=== PATIENT | male | born 1960 | race Caucasian/White ===

== ENCOUNTER 2022-05-10 15:20 | Observation (INO) | payer MEDICARE, SELFPAY ==
[2022-05-10 15:21] VITALS: BP 130/77; PULSE 78; RESP 14; TEMP 36.3; O2SAT 99; BMI 24.3
--- NOTE | 2022-05-10 15:31 | NURSING ---
NO OLD EKGS
--- NOTE | 2022-05-10 16:11 | EKG12_ITS ---
Test Reason : CP Blood Pressure : / mmHG Vent. Rate : 080 BPM Atrial Rate : 080 BPM P-R Int : 140 ms QRS Dur : 118 ms QT Int : 420 ms P-R-T Axes : 064 -53 025 degrees QTc Int : 484 ms Normal sinus rhythm Left axis deviation Non-specific intra-ventricular conduction delay Minimal voltage criteria for LVH, may be normal variant ( Rodri product ) Prolonged QT Abnormal ECG Confirmed by DOROTHEA RIZZO, BILLY ([id number]), editor sound FLOR ERVIN ([id number]) on 05/13/2022 11:39:05 AM Referred By: LUCIO Confirmed By:BILLY PIEDRA MD
--- NOTE | 2022-05-10 16:15 | RAD_ITS ---
STUDY: X-RAY CHEST REASON FOR EXAM: Male, 62 years old. Chest pain beginning today. History of CO. TECHNIQUE: Single AP portable view of the chest. COMPARISON: None. FINDINGS: The lungs are clear and expanded. There is no demonstrated pleural abnormality. Normal size heart. Normal mediastinum and reena. Normal visualized pulmonary arteries. Normal visualized aortic arch and descending thoracic aorta. Normal visualized thoracic spine. Evidence of anterior fusion of the cervical spine. Normal visualized ribs, clavicles, and shoulders. There is no demonstrated abnormality of the visualized soft tissue structures of the upper abdomen. RAD/Chest 1 View (Portable) IMPRESSION: No acute cardiopulmonary disease. Electronically Signed: Patrick Jamil DO at 16:30 EDT ,
--- NOTE | 2022-05-10 16:16 | EDS_ITS ---
HPI History of Present Illness Chief Complaint: Chest Pain Informant: patient Narrative Narrative: 62-year-old male with a previous medical history of coronary artery disease presented to the emergency room with intermittent chest pain for the past 2 hours. The patient states that he has 15 stents in his heart. His last heart catheterization was in July but nothing needed to be intervened upon. He is currently riding his bike from [place] to [facility]. He states that today he developed a central chest pain that is coming and going and reminded him of the pain that he feels with his angina. No recent changes in medications. There is a familial history of early coronary artery disease. He is also a diabetic. [facility] Medical History (Updated 05/10/22 @ 19:[address] Will Tran, ) Coronary artery disease Diabetes HLD (hyperlipidemia) Hypertension Myocardial infarct Home Medications Humalog Pen 05/10/22 [History Last Taken Unknown] amlodipine 10 mg tablet 10 mg PO QHS 05/10/22 [History Last Taken Unknown] aspirin 81 mg capsule 81 mg PO DAILY 05/10/22 [History Last Taken Unknown] bupropion HCl 300 mg 24 hr tablet, extended release 300 mg PO DAILY 05/10/22 [History Last Taken Unknown] clopidogrel 75 mg tablet 75 mg PO QHS 05/10/22 [History Last Taken Unknown] diphenhydramine HCl 25 mg capsule (Benadryl) 75 mg PO QHS 05/10/22 [History Last Taken Unknown] duloxetine 60 mg capsule,delayed release 60 mg PO DAILY 05/10/22 [History Last Taken Unknown] empagliflozin 10 mg tablet (Jardiance) 10 mg PO DAILY 05/10/22 [History Last Taken Unknown] evolocumab 140 mg/mL subcutaneous syringe (Repatha Syringe) 420 mg subcut QMONTH 05/10/22 [History Last Taken Unknown] ezetimibe 10 mg tablet 10 mg PO DAILY 05/10/22 [History Last Taken Unknown] fluticasone propionate 50 mcg/actuation nasal spray,suspension 1 spray intranasal BID 05/10/22 [History Last Taken Unknown] insulin degludec 100 unit/mL subcutaneous solution (Tresiba U-100 Insulin) 35 unit subcut QHS 05/10/22 [History Last Taken Unknown] isosorbide dinitrate 40 mg tablet 40 mg PO TID 05/10/22 [History Last Taken Unknown] metformin 500 mg tablet 500 mg PO BID 05/10/22 [History Last Taken Unknown] metoprolol tartrate 50 mg tablet 50 mg PO QHS 05/10/22 [History Last Taken Unknown] ranolazine 1,000 mg tablet,extended release,12 hr 1,000 mg PO BID 05/10/22 [History Last Taken Unknown] rosuvastatin 40 mg tablet 40 mg PO QHS 05/10/22 [History Last Taken Unknown] tizanidine 4 mg tablet 4 mg PO QHS 05/10/22 [History Last Taken Unknown] trazodone 100 mg tablet 200 mg PO QHS 05/10/22 [History Last Taken Unknown] Allergy/AdvReac Type Severity Reaction Status Date / Time ketorolac [From Toradol] Allergy Hives Verified 05/10/22 16:03 Surgical History (Updated 05/10/22 @ 18:[address] Jessica Nieto MD) History of coronary artery stent placement Social History Smoking Status: Never smoker ROS ROS ED Constitutional Constitutional ED: Denies chills or weight loss Eyes Eyes: Denies change in vision or diplopia ENT ENT ED: Denies ear pain, rhinorrhea or sore throat Cardiovascular Cardiovascular: Reports chest pain; Denies orthopnea, palpitations or racing heartbeat Respiratory/Chest Respiratory/Chest: Denies cough, dyspnea or orthopnea Gastrointestinal Gastrointestinal: Denies abdominal pain, diarrhea, nausea or vomiting Genitourinary Genitourinary ED: Denies dysuria, hematuria or urinary frequency Musculoskeletal Musculoskeletal: Denies arthralgias or myalgias Integumentary Denies abscess or rash Neurologic Neurologic: Denies headache(s) or weakness Psychiatric Psychiatric: Denies anxiety, depression, suicidal ideation or suicidal thoughts Endocrine Endocrinology: Denies polydipsia, polyphagia or polyuria Allergic/Immunologic Allergic/Immunologic ED: Denies mouth swelling, tongue swelling or urticaria EXAM Physical Exam Const Vital Signs: 05/10/22 15:21 05/10/22 15:49 05/10/22 17:20 Temperature 97.3 F L Temperature Source Temporal Pulse Rate 78 84 Respiratory Rate 14 16 Respiratory Effort Normal Non-Labored Respiratory Pattern Normal Blood Pressure 130/77 H 121/76 H Blood Pressure Mean 94 91 Pulse Ox 99 96 Oxygen Delivery Method Room Air Room Air Positive well nourished and well developed General Appearance ED: well developed HEENT Reports normocephalic, head/scalp atraumatic and moist mucous membranes Eyes PERRL and EOMs intact bilaterally Neck no lymphadenopathy, supple and no JVD Resp normal respiratory effort and clear to auscultation bilaterally Cardio regular rate, regular rhythm and no murmurs GI normal to inspection, nondistended, normoactive bowel sounds and non-tender Palpation: soft Back/Spine no CVA tenderness and normal ROM Extremity normal to inspection General Extremety ED: Negative for edema General Extremity: Negative for edema Neuro oriented x3 and CN's II-XII intact bilaterally Sensorium / Orientation: alert Motor Exam: strength 5/5 throughout Psych mental status grossly normal Mood & Affect: anxious; Negative for depressed or tearful Skin no rashes or lesions noted and no wounds Heart Score History: Moderately Suspicious ECG: Normal Age: >45 - <65 years Risk Factors: >/= 3 Risk Factors or History of CAD Score: 4 MDM MDM MDM Narrative Medical decision making narrative: My interpretation of his chest x-ray is no acute process basic blood work was obtained. His troponin is 10. His EKG shows no acute process. He is continue to have pain despite morphine and so Parth. At I will give a GI cocktail and if that does not work we can proceed to some nitrates. At this point I do not see an clear evidence of ACS other than the discomfort that he is having. I think it is very reasonable that we admit him into the hospital tonight for further evaluation. He is comfortable with this plan. Lab Data Attestation: I reviewed the patient's lab results. Labs: Laboratory Results - last 24 hr 05/10/22 05/10/22 05/10/22 15:50 15:50 17:26 WBC 5.2 RBC 4.68 Hgb 11.7 L Hct 38.0 L MCV 81.2 MCH 25.0 L MCHC 30.8 L RDW Std Deviation 48.9 H RDW Coeff of Scott 16.7 H Plt Count 226 MPV 9.1 Immature Gran % (Auto) 0.200 Neut % (Auto) 61.8 Lymph % (Auto) 24.4 [place] % (Auto) 10.7 H Eos % (Auto) 2.7 Baso % (Auto) 0.2 Absolute Neuts (auto) 3.2 Absolute Lymphs (auto) 1.27 Nucleated RBC % 0 Sodium 140 Potassium 3.9 Chloride 104 Carbon Dioxide 29.0 Anion Gap 7 BUN 11 Creatinine 1.12 Estim Creat Clear Calc 63.94 Est GFR (MDRD) Af Amer 85 Est GFR (MDRD) Non-Af 71 BUN/Creatinine Ratio 9.8 L Glucose 92 Calcium 8.8 Troponin I High Sens 10 POC Glucose 72 L Radiography Diagnostic Testing: Clinical Impression(s) from Imaging Studies Chest X-Ray 05/10/22 16:15 IMPRESSION: No acute cardiopulmonary disease. Electronically Signed: Patrick Jamil DO at 16:30 EDT Reading Location ID and State: [address] [place] [address] Tel [phone], Service support , EKG Initial EKG: Attestation: I personally reviewed and interpreted this EKG as follows: Comments: Normal sinus rhythm with a ventricular rate of 80 bpm. There is no concerning features of ACS. No available EKGs for comparisons Discharge Plan Dx/Rx/DC Orders Clinical Impression: Chest pain, Coronary artery disease, Diabetes mellitus Disposition Disposition: Acute Care [facility]
[2022-05-10] MEDS: Aspirin 81 MG TAB.CHEW 324 MG PO (16:27)
[2022-05-10] MEDS: Morphine 4 MG/ML Syringe IV ×2 (16:42→20:31)
[2022-05-10] MEDS: Ondansetron 4 MG/2 ML Vial IV ×2 (16:42→20:40)
[2022-05-10 16:43] LABS: Absolute Lymphocyte Count 1.27 X10^3/uL (0.83-4.51); Absolute Neutrophil Count 3.2 X10^3/uL (2.0-7.7); Basophil# 0.01 X10^3/uL; Basophil% 0.2 % (0-1); Eosinophil# 0.14 X10^3/uL; Eosinophils% 2.7 % (0-5); Hemoglobin 11.7 g/dL (13.0-16.5); Lymphocyte # 1.27 X10^3/ul (0.83-4.51); Lymphocyte % 24.4 % (19-41); Mean Corp Hgb Conc 30.8 g/dL (32-36); Mean Corpuscular Volume 81.2 fL (80-94); Mean Platelet Vol. 9.1 fl (6.2-12.0); Monocyte# 0.56 X10^3/uL; Monocyte% 10.7 % (0-10); NRBC Flagged by Analyzer 0 % (0-5); Neutrophil # 3.22 X10^3/uL (2.7-7.7); Neutrophil % 61.8 % (47-70); Platelet Count 226 K/mm3 (150-450); RBC Distribution Width CV 16.7 % (11.6-14.6); RBC Distribution Width SD 48.9 fl (35.1-43.9); Red Blood Count 4.68 M/mm3 (4.6-6.2); White Blood Count 5.2 K/mm3 (4.4-11.0)
[2022-05-10 17:14] LABS: Anion Gap 7 (5-15); BUN 11 mg/dL (7-18); BUN/Creat Ratio 9.8 RATIO (10-20); Calcium,Total 8.8 mg/dL (8.5-10.1); Chloride 104 mmol/L (98-107); Creatinine, Serum 1.12 mg/dL (0.70-1.30); EST Glomerular Filtration Rate 71 mL/min (>60); Est Glom Filt Rate - Afr Amer 85 mL/min (>60); Estimated Creatinine Clearance 63.94 ml/min; Glucose 92 mg/dL (74-106); Potassium 3.9 mmol/L (3.5-5.1); Sodium Level 140 mmol/L (136-145); Troponin-I HS 10 pg/mL (3.0-78.0)
[2022-05-10 17:20] VITALS: BP 121/76; PULSE 84; RESP 16; O2SAT 96
[2022-05-10 17:45] LABS: Bedside Glucose 72 mg/dL (74-106)
--- NOTE | 2022-05-10 18:46 | PCM.HP.STD ---
HPI - General General Date of Admission: 05/10/22 Date of Service: 05/10/22 Chief Complaint: Chest pain HPI Narrative The patient is a 62 y/o M w/ PMHx: Anxiety and Depression, CAD s/p PCI x 15, HTN, HLD, Diabetes mellitus type II who presents to the [facility] ED on 05/10/22 with history of onset chest discomfort noted to be intermittent over the last 2 hours with significant prior PCI history with last noted in July with no intervention at that time with continued medical management reportedly currently riding his bike from [place] to [facility] with development of central chest discomfort similar to his prior anginal pain prompting ED evaluation. Chest pain is primarily midsternal with some radiation up to the left neck with transient nausea, dyspnea and diaphoresis which have all improved rating the discomfort its worst 9-10 out of 10 with improvement to 5 out of 10 with specifically morphine administration. He had been aggressively riding his bike at the time of onset; however, he has ridden from [place] already without any issues prior to that. Patient in the ED refused nitroglycerin as he notes it never works for him and gives him a headache and also discussed with him that ED physician plan to give him a GI cocktail and he very adamantly said he is never had any issues with reflux however discussed again that this was in order to further assess. Work-up in the ED included T97.3, heart rate 78, BP 130/77, respiratory rate 14, 99% on room air, CBC with WBC 5.2, 11.2, MCV 81.2, platelet 226 without marked shift, BMP unremarkable, troponin 10, chest x-ray with no acute cardiopulmonary findings, EKG with sinus rhythm with no acute evidence of ischemia. In the ED patient ministered aspirin 324 mg p.o. x1, morphine 4 mg IV x1 as well as Zofran 4 mg IV x1 in addition to a GI cocktail which is ordered and pending. [facility] Medical History (Updated 05/10/22 @ 19:[address] Jessica Nieto MD) Allergic rhinitis Anxiety and depression Coronary artery disease Diabetes HLD (hyperlipidemia) Hypertension Myocardial infarct Home Medications Humalog Pen 05/10/22 [History Last Taken Unknown] amlodipine 10 mg tablet 10 mg PO QHS 05/10/22 [History Last Taken Unknown] aspirin 81 mg capsule 81 mg PO DAILY 05/10/22 [History Last Taken Unknown] bupropion HCl 300 mg 24 hr tablet, extended release 300 mg PO DAILY 05/10/22 [History Last Taken Unknown] clopidogrel 75 mg tablet 75 mg PO QHS 05/10/22 [History Last Taken Unknown] diphenhydramine HCl 25 mg capsule (Benadryl) 75 mg PO QHS 05/10/22 [History Last Taken Unknown] duloxetine 60 mg capsule,delayed release 60 mg PO DAILY 05/10/22 [History Last Taken Unknown] empagliflozin 10 mg tablet (Jardiance) 10 mg PO DAILY 05/10/22 [History Last Taken Unknown] evolocumab 140 mg/mL subcutaneous syringe (Repatha Syringe) 420 mg subcut QMONTH 05/10/22 [History Last Taken Unknown] ezetimibe 10 mg tablet 10 mg PO DAILY 05/10/22 [History Last Taken Unknown] fluticasone propionate 50 mcg/actuation nasal spray,suspension 1 spray intranasal BID 05/10/22 [History Last Taken Unknown] insulin degludec 100 unit/mL subcutaneous solution (Tresiba U-100 Insulin) 35 unit subcut QHS 05/10/22 [History Last Taken Unknown] isosorbide dinitrate 40 mg tablet 40 mg PO TID 05/10/22 [History Last Taken Unknown] metformin 500 mg tablet 500 mg PO BID 05/10/22 [History Last Taken Unknown] metoprolol tartrate 50 mg tablet 50 mg PO QHS 05/10/22 [History Last Taken Unknown] ranolazine 1,000 mg tablet,extended release,12 hr 1,000 mg PO BID 05/10/22 [History Last Taken Unknown] rosuvastatin 40 mg tablet 40 mg PO QHS 05/10/22 [History Last Taken Unknown] tizanidine 4 mg tablet 4 mg PO QHS 05/10/22 [History Last Taken Unknown] trazodone 100 mg tablet 200 mg PO QHS 05/10/22 [History Last Taken Unknown] Allergy/AdvReac Type Severity Reaction Status Date / Time ketorolac [From Toradol] Allergy Hives Verified 05/10/22 16:03 Family History (Updated 05/10/22 @ 19:[address] Jessica Nieto MD) Mother Alzheimer disease Hypertension Heart disease CAD (coronary artery disease) HLD (hyperlipidemia) Kidney disease Father Kidney disease CAD (coronary artery disease) Heart disease Hypertension Myocardial infarction HLD (hyperlipidemia) CVA (cerebral vascular accident) Surgical History (Updated 05/10/22 @ 19:[address] Jessica Nieto MD) H/O bilateral inguinal hernia repair History of coronary artery stent placement History of elbow surgery History of foot surgery History of hand surgery History of neck surgery History of tonsillectomy and adenoidectomy S/P ear surgery Social History (Updated 05/10/22 @ 19:[address] Jessica Nieto MD) household members: spouse Smoking Status: Never smoker alcohol intake: never substance use type: does not use ROS ROS Narrative Admission Review of Systems: CONSTITUTIONAL: No weight loss, fever, chills, + weakness or fatigue. HEENT: Eyes: No visual loss, blurred vision, double vision or yellow sclerae. Ears, Nose, Throat: No hearing loss, sneezing, congestion, runny nose or sore throat. SKIN: No rash or itching, lesions, wounds. CARDIOVASCULAR: + chest pain, chest pressure or chest discomfort, No palpitations, edema, orthopnea, syncopal events. RESPIRATORY: + transient shortness of breath, No cough or sputum, wheezing, hemoptysis. GASTROINTESTINAL: + transient nausea, No anorexia, vomiting or diarrhea, abdominal pain, melena, BRBPR. GENITOURINARY: No dysuria, frequency, urgency or retention. NEUROLOGICAL: No headache, dizziness, syncope, paralysis, ataxia, numbness or tingling in the extremities, focal weakness, change in bowel or bladder control, seizure. MUSCULOSKELETAL: + muscle, back pain, joint pain or stiffness. HEMATOLOGIC: + anemia, bleeding or bruising. LYMPHATICS: No enlarged nodes. No history of splenectomy. PSYCHIATRIC: + history of depression or anxiety. ENDOCRINOLOGIC: + reports of sweating, cold or heat intolerance. No polyuria or polydipsia. ALLERGIES: + history of rhinitis. Vital Signs Vital Signs Vital Signs: 05/10/22 15:21 05/10/22 15:49 05/10/22 17:20 Temperature 97.3 F L Temperature Source Temporal Pulse Rate 78 84 Respiratory Rate 14 16 Respiratory Effort Normal Non-Labored Respiratory Pattern Normal Blood Pressure 130/77 H 121/76 H Blood Pressure Mean 94 91 Pulse Ox 99 96 Oxygen Delivery Method Room Air Room Air Weight Weight: 155 lb Body Mass Index (BMI) 24.3 Physical Exam Narrative Physical Examination: General: Awake, alert, oriented x 3 and cooperative, seated upright in the ED bed, reports chest pain back up to 8 out of 10 although more comfortable appearing. Skin: Normal color, normal turgor, no icterus, no cyanosis. HEENT: AT/NC, EOMI, PERRLA, MMM, no carotid bruits or JVD noted. Lungs: Mildly diminished, greater bases, poor effort, no rales, ronchi or wheezing. Heart: Regular rate and rhythm; no gallop, rub audible. Abdomen: Soft, NTTP, ND, normal BS, no HSM. Extremities: No cyanosis, clubbing, or edema, several scars from orthopedic surgeries. Neurological: Patient awake, alert, oriented as noted, cognitive function intact; pupils equally reactive to light and accommodation, cranial nerves II-XII grossly normal, moving all 4 extremities, no focal deficits, strength mildly global decrease secondary to acute complaints. Psychiatric: Affect appears normal comfortable although still reporting midsternal chest discomfort, no acute evidence of depressive or anxiety feelings. Results Lab / Micro Data Result Diagrams: 05/10/22 15:50 05/10/22 15:50 Labs: Laboratory Results - last 24 hr 05/10/22 15:50: WBC 5.2, RBC 4.68, Hgb 11.7 L, Hct 38.0 L, MCV 81.2, MCH 25.0 L, MCHC 30.8 L, RDW Std Deviation 48.9 H, RDW Coeff of Scott 16.7 H, Plt Count 226, MPV 9.1, Immature Gran % (Auto) 0.200, Neut % (Auto) 61.8, Lymph % (Auto) 24.4, Lane % (Auto) 10.7 H, Eos % (Auto) 2.7, Baso % (Auto) 0.2, Absolute Neuts (auto) 3.2, Absolute Lymphs (auto) 1.27, Nucleated RBC % 0 05/10/22 15:50: Sodium 140, Potassium 3.9, Chloride 104, Carbon Dioxide 29.0, Anion Gap 7, BUN 11, Creatinine 1.12, Estim Creat Clear Calc 63.94, Est GFR (MDRD) Af Amer 85, Est GFR (MDRD) Non-Af 71, BUN/Creatinine Ratio 9.8 L, Glucose 92, Calcium 8.8, Troponin I High Sens 10 05/10/22 17:26: POC Glucose 72 L Radiology Impression Chest X-Ray 05/10/22 16:15 IMPRESSION: No acute cardiopulmonary disease. Electronically Signed: Patrick Jamil DO at 16:30 EDT Reading Location ID and State: [address] [place] [address] Tel [phone], Service support , Assessment & Plan Assessment/Plan (1) Chest pain: PLAN: Plan The patient is a 62 y/o M w/ PMHx: Anxiety and Depression, CAD s/p PCI x 15, HTN, HLD, Diabetes mellitus type II who presents to the [facility] ED on 05/10/22 with history of onset chest discomfort noted to be intermittent over the last 2 hours with significant prior PCI history with last noted in July with no intervention at that time with continued medical management reportedly. #1. Chest Pain: EKG in ED with sinus rhythm with no acute evidence of ischemia, CXR w/ no acute cardiopulmonary finding, initial trop 10. Will admit to PCU, place on a monitored bed to assure no acute myocardial infarction with serial cardiac enzymes and EKGs. If repeat serial cardiac enzymes and EKGs remain unremarkable will pursue a.m. cardiac stress testing. FLP in AM. Magnesium level requested. If cardiac enzymes or repeat EKGs are concerning would hold on stress testing request cardiology involvement. ASA, morphine. #2. CAD: Status post PCI, will continue aspirin, Plavix, statin, metoprolol, Ranexa, not on TAYLER inhibitor or ARB per current list. #3. Diabetes mellitus type II: Hold oral home regimen, continue home insulin regimen, ADA diet until n.p.o. status, accu checks w/ ISS. #4. Hypertension: Continue home regimen including amlodipine, metoprolol, isosorbide, PRN hydralazine. #5. Hyperlipidemia: Continue home statin and estimated regimen. Of note patient is on Repatha injection monthly. AM FLP. #6. Anxiety and depression: We will continue patient home duloxetine, trazodone and bupropion regimen. #7. Anemia, normocytic, unclear if chronic: Admission hemoglobin 11.1, no comparison, MCV 81.2, will continue to trend and if remains similar may consider further work-up. #8. Allergic rhinitis: We will continue patient home fluticasone regimen. #9. DVT prophylaxis: SCDs, Lovenox. Charges/Coding Visit Charges OBSV E&M: 85406 Initial observation care L3
--- NOTE | 2022-05-10 18:56 | EKG12_ITS ---
Test Reason : CP ADMIT Blood Pressure : / mmHG Vent. Rate : 068 BPM Atrial Rate : 068 BPM P-R Int : 150 ms QRS Dur : 126 ms QT Int : 446 ms P-R-T Axes : 059 -51 016 degrees QTc Int : 474 ms Normal sinus rhythm Left axis deviation Left ventricular hypertrophy with QRS widening ( R in aVL , [place] product ) Abnormal ECG When compared with ECG of 10-MAY-2022 15:20, MANUAL COMPARISON REQUIRED, DATA IS UNCONFIRMED Confirmed by DOROTHEA RIZZO, BILLY ([id number]), editor & co founder OLESYA GAGE ([id number]) on 05/13/2022 1:26:00 PM Referred By: Confirmed By:BILLY PIEDRA MD
[2022-05-10 19:41] VITALS: BP 123/69; PULSE 71; RESP 16; TEMP 36.6; O2SAT 98
[2022-05-10 19:53] LABS: Magnesium 2.1 mg/dL (1.6-2.6)
[2022-05-10 20:10] VITALS: BMI 24.7
[2022-05-10 20:17] VITALS: BP 137/69; PULSE 68; RESP 18; TEMP 36.8; O2SAT 99
[2022-05-10] MEDS: 0.9% Saline Lock 10 ML Syringe IV (20:31)
[2022-05-10 20:49] VITALS: PULSE 70
[2022-05-10 21:20] LABS: Troponin-I HS 13 pg/mL (3.0-78.0)
[2022-05-10 22:57] LABS: Troponin-I HS 12 pg/mL (3.0-78.0)
[2022-05-10] MEDS: tiZANidine HCl 2 MG Tablet 4 MG PO (23:11)
[2022-05-10] MEDS: Fluticasone 0.05% 1 SPRAY NASAL.SRY NASAL (23:11)
[2022-05-10] MEDS: Clopidogrel Bisulfate 75 MG Tablet PO (23:11)
[2022-05-10 23:12] VITALS: PULSE 66
[2022-05-10] MEDS: DiphenhydrAMINE 25 MG Capsule 75 MG PO (23:12)
[2022-05-10] MEDS: amLODIPine 10 MG Tablet PO (23:12)
[2022-05-10] MEDS: traZODone 100 MG Tablet 200 MG PO (23:12)
[2022-05-10] MEDS: Ranolazine 500 MG Tablet 1000 MG PO (23:12)
[2022-05-10] MEDS: Metoprolol Tartrate 50 MG Tablet PO (23:12)
[2022-05-10] MEDS: oxyCODONE 5 MG Tablet PO (23:15)
[2022-05-10] MEDS: Atorvastatin Calcium 80 MG Tablet PO (23:16)
[2022-05-10 23:41] LABS: Bedside Glucose 110 mg/dL (74-106)
[2022-05-11] VITALS (7 sets, daily range): BP systolic 110–123; BP diastolic 58–87; PULSE 61–81; RESP 16–18; TEMP 36.3–36.6; O2SAT 93–96
[2022-05-11] MEDS: 0.9% Normal Saline 1,000 ML 100 ML IV ×2 (00:18→09:41)
[2022-05-11] MEDS: Morphine 4 MG/ML Syringe IV ×3 (01:31→10:01)
[2022-05-11 05:57] LABS: Absolute Lymphocyte Count 1.31 X10^3/uL (0.83-4.51); Absolute Neutrophil Count 2.9 X10^3/uL (2.0-7.7); Basophil# 0.01 X10^3/uL; Basophil% 0.2 % (0-1); Eosinophils% 4.1 % (0-5); Hematocrit 36.9 % (40-54); Hemoglobin 11.1 g/dL (13.0-16.5); Lymphocyte # 1.31 X10^3/ul (0.83-4.51); Lymphocyte % 26.6 % (19-41); Mean Corp Hgb Conc 30.1 g/dL (32-36); Mean Corpuscular Hgb 24.7 pg (27.0-32.0); Mean Corpuscular Volume 82.2 fL (80-94); Monocyte% 10.2 % (0-10); NRBC Flagged by Analyzer 0 % (0-5); Neutrophil # 2.88 X10^3/uL (2.7-7.7); Neutrophil % 58.5 % (47-70); Platelet Count 189 K/mm3 (150-450); RBC Distribution Width CV 16.6 % (11.6-14.6); RBC Distribution Width SD 49.7 fl (35.1-43.9); Red Blood Count 4.49 M/mm3 (4.6-6.2); White Blood Count 4.9 K/mm3 (4.4-11.0)
[2022-05-11 06:25] LABS: AST(SGOT) 18 U/L (15-37); Alanine Aminotransfer ALT/SGPT 21 U/L (16-61); Alkaline Phosphatase 53 U/L (45-117); Anion Gap 5 (5-15); BUN 10 mg/dL (7-18); BUN/Creat Ratio 10.3 RATIO (10-20); Calcium,Total 7.8 mg/dL (8.5-10.1); Chloride 108 mmol/L (98-107); Cholesterol 91 mg/dL (200); Creatinine, Serum 0.97 mg/dL (0.70-1.30); EST Glomerular Filtration Rate 84 mL/min (>60); Est Glom Filt Rate - Afr Amer 101 mL/min (>60); Estimated Creatinine Clearance 73.82 ml/min; Globulin 2.9 g/dL (2.2-4.2); Glucose 130 mg/dL (74-106); High Density Lipoprotein 53 mg/dL; Potassium 3.8 mmol/L (3.5-5.1); Protein, Total 5.9 g/dL (6.4-8.2); Sodium Level 141 mmol/L (136-145); Triglycerides 146 mg/dL; Very Low Density Lipoprotein 29 mg/dL (5-40)
[2022-05-11] MEDS: Aspirin 81 MG TAB.CHEW PO (06:42)
[2022-05-11 07:00] LABS: Bedside Glucose 137 mg/dL (74-106)
--- NOTE | 2022-05-11 07:30 | NURSING ---
transported to stress at this time
--- NOTE | 2022-05-11 09:33 | NURSING ---
return from stress, vitals obtained, complaining of nausea and chest pain, will medicate
[2022-05-11] MEDS: Ondansetron 4 MG/2 ML Vial IV (09:41)
[2022-05-11] MEDS: Isosorbide DN 20 MG Tablet 40 MG PO ×2 (09:41→12:06)
[2022-05-11] MEDS: 0.9% Saline Lock 10 ML Syringe IV (09:41)
--- NOTE | 2022-05-11 09:41 | PN.HOSP_ITS ---
Subjective Subjective DOS: 05/11/2022 CC: [] [] Objective Data Objective Data Vital Signs: Vital Signs Temp Pulse Resp BP Pulse Ox O2 Del Method O2 Flow Rate 97.4 F L 61 16 119/69 95 Room Air 2 05/11/22 09:35 05/11/22 09:35 05/11/22 09:35 05/11/22 09:35 05/11/22 09:35 05/11/22 09:35 05/10/22 20:35 Oxygen Flow Rate (L/min) 2 Oxygen Delivery Method Room Air Weight: 71.6 kg Body Mass Index (BMI) 24.7 Intake & Output: Intake and Output for Last 24 Hours 05/09/22 05/10/22 05/11/22 23:59 23:59 23:59 Intake Total 720 / 720 Balance 720 / 720 Lab / Micro Data Result Diagrams: 05/11/22 05:30 05/11/22 05:30 Labs: Laboratory Results - last 24 hr 05/10/22 15:50: WBC 5.2, RBC 4.68, Hgb 11.7 L, Hct 38.0 L, MCV 81.2, MCH 25.0 L, MCHC 30.8 L, RDW Std Deviation 48.9 H, RDW Coeff of Scott 16.7 H, Plt Count 226, MPV 9.1, Immature Gran % (Auto) 0.200, Neut % (Auto) 61.8, Lymph % (Auto) 24.4, [place] % (Auto) 10.7 H, Eos % (Auto) 2.7, Baso % (Auto) 0.2, Absolute Neuts (auto) 3.2, Absolute Lymphs (auto) 1.27, Nucleated RBC % 0 05/10/22 15:50: Sodium 140, Potassium 3.9, Chloride 104, Carbon Dioxide 29.0, Anion Gap 7, BUN 11, Creatinine 1.12, Estim Creat Clear Calc 63.94, Est GFR (MDRD) Af Amer 85, Est GFR (MDRD) Non-Af 71, BUN/Creatinine Ratio 9.8 L, Glucose 92, Calcium 8.8, Troponin I High Sens 10 05/10/22 15:50: Magnesium 2.1 05/10/22 17:26: POC Glucose 72 L 05/10/22 20:50: Troponin I High Sens 13 05/10/22 22:18: Troponin I High Sens 12 05/10/22 23:06: POC Glucose 110 H 05/11/22 05:30: WBC 4.9, RBC 4.49 L, Hgb 11.1 L, Hct 36.9 L, MCV 82.2, MCH 24.7 L, MCHC 30.1 L, RDW Std Deviation 49.7 H, RDW Coeff of Scott 16.6 H, Plt Count 189, MPV 9.0, Immature Gran % (Auto) 0.400, Neut % (Auto) 58.5, Lymph % (Auto) 26.6, [place] % (Auto) 10.2 H, Eos % (Auto) 4.1, Baso % (Auto) 0.2, Absolute Neuts (auto) 2.9, Absolute Lymphs (auto) 1.31, Nucleated RBC % 0 05/11/22 05:30: Sodium 141, Potassium 3.8, Chloride 108 H, Carbon Dioxide 28.0, Anion Gap 5, BUN 10, Creatinine 0.97, Estim Creat Clear Calc 73.82, Est GFR (MDRD) Af Amer 101, Est GFR (MDRD) Non-Af 84, BUN/Creatinine Ratio 10.3, Glucose 130 H, Calcium 7.8 L, Total Bilirubin 0.20, AST 18, ALT 21, Alkaline Phosphatase 53, Total Protein 5.9 L, Albumin 3.0 L, Globulin 2.9, Albumin/Globulin Ratio 1.0, Triglycerides 146, Cholesterol 91, LDL Cholesterol 9, VLDL Cholesterol 29, HDL Cholesterol 53 05/11/22 06:37: POC Glucose 137 H Radiography Diagnostic Testing: Radiology Impression Chest X-Ray 05/10/22 16:15 IMPRESSION: No acute cardiopulmonary disease. Electronically Signed: Patrick Jamil DO at 16:30 EDT Reading Location ID and State: [facility] / [place] Tel [phone], Service support , Assessment & Plan Assessment/Plan PLAN: Plan 62-year-old male with a history of anxiety and depression, CAD status post PCI x15, hypertension, diabetes type 2 who presented to the emergency department 05/10 with chest pain. #Chest pain Has history of multiple PCI with most recent last July with no intervention at that time Troponins negative, EKG not suggestive of acute [place] A.m. cardiac stress testing Loaded with aspirin #CAD status post PCI x15 Aspirin, Plavix, statin Metoprolol, Ranexa. Not on TAYLER at home #Type 2 diabetes mellitus Holding oral home regimen Sliding scale insulin and Accu-Cheks #Hypertension Amlodipine, metoprolol, isosorbide #Anxiety and depression Continue Cymbalta, trazodone, Wellbutrin #Normocytic anemia Admission hemoglobin 11.1 with an MCV of 81.2 continue to monitor CBCs Been stable overnight
[2022-05-11] MEDS: Ranolazine 500 MG Tablet 1000 MG PO (09:42)
[2022-05-11] MEDS: DULoxetine Hcl 60 MG Capsule PO (09:42)
[2022-05-11] MEDS: Ezetimibe 10 MG Tablet PO (09:43)
[2022-05-11] MEDS: Fluticasone 0.05% 1 SPRAY NASAL.SRY NASAL (09:43)
[2022-05-11] MEDS: buPROPion (XL) 300 MG TABLET.XL PO (09:43)
[2022-05-11 11:55] LABS: Bedside Glucose 143 mg/dL (74-106)
--- NOTE | 2022-05-11 12:01 | STRESSREP ---
Stress Test Report Pharmacologic/Lexiscan myocardial perfusion stress test. Indication; 62-year-old patient with history of CAD has a PCI and stent, diabetes mellitus presented to ER May 10 with symptoms of chest discomfort intermittent. Based on his clinical presentation is scheduled for Lexiscan sestamibi myocardial perfusion study Stress protocol: Resting EKG demonstrates. Normal sinus rhythm. 0.4 mg of regadenoson was infused per usual protocol followed by rapid intravenous saline flush injection continuous EKG monitoring was performed. The maximum heart rate attained was 78 bpm which was 49% of maximum predicted heart . Stress EKG showed[, no significant change from the resting EKG, with maximum heart rate of 78 bpm. Arrhythmia: No arrhythmia demonstrated Symptoms: Patient had no symptoms of chest pain Blood pressure at rest: 120/64 mmHg blood pressure at the end of stress: 120/64 mmHg Myocardial perfusion protocol. 11.6 mCi ]of Technetium 99m Sestamibi was injected at rest. [ 0.4 mg ]of Regadenoson was infused per usual protocol peak infusion 33 mCi ]of Technetium 99m sestamibi was injected. Stress images were obtained stress and rest images were reconstructed and compared in the short axis vertical and horizontal long axis. Gated images were also obtained Perfusion SPECT analysis: Review of the images demonstrate normal uptake of sestamibi at rest, post stress images demonstrate similar uptake of sestamibi to the resting images, homogeneous tracer uptake With no evidence of reversible myocardial ischemia. Gated SPECT analysis: The gated ejection fraction is 54%. Normal LV wall motion, with normal LV systolic function Conclusion: Negative Lexiscan sestamibi myocardial perfusion study for reversible myocardial ischemia Normal LV systolic function Nancy Ardon MD,FACC,[facility]
--- NOTE | 2022-05-11 15:13 | CON.PCM.CA_ITS ---
Assessment & Plan Assessment/Plan (1) Diabetes mellitus: (2) Coronary artery disease: (3) Chest pain: PLAN: Plan 62-year-old patient originally from [place] Is here with friends for bike riding Developed symptoms of chest pain Patient known to have history of CAD with multiple coronary artery stents Regularly follow with his primary wind up worker in [place] Last cardiac catheterization according to patient was in July where he has been treated with medical therapy Presented with symptoms of chest pain and had a cardiac work-up which is negative with no significant change in the EKG and cardiac biomarker was high sensitive troponin within normal Further evaluation by nuclear stress test showed no evidence of reversible myocardial ischemia. Cardiac care plan recommendations; 1. This patient had CAD with multiple prior coronary artery stents I did recommended to evaluate further with cardiac cath as she continued to have symptoms of chest pain Patient declined cardiac cath and would like to follow-up with his primary wind up worker in [place] 2. I reviewed all his current medication will continue on dual antiplatelet therapy with aspirin Plavix also to continue on a statin Patient also on antianginal medication with Ranexa. And has been on long-acting nitro glycerin From cardiac standpoint would recommend to follow-up with his primary wind up worker, since patient declined cardiac catheterization no further cardiac input required at this point. HPI Consult Data Date of Consult: 05/11/22 HPI Narrative Reason for Consultation: Patient with CAD/multiple coronary artery stents, unstable angina HPI Narrative: PAMELA BARON, is a 62 M who presents [facility] Medical History (Updated 05/10/22 @ 19:[address] Jessica Nieto MD) Allergic rhinitis Anxiety and depression Coronary artery disease Diabetes HLD (hyperlipidemia) Hypertension Myocardial infarct Home Medications Humalog Pen 05/10/22 [History Last Taken Unknown] amlodipine 10 mg tablet 10 mg PO QHS 05/10/22 [History Last Taken Unknown] aspirin 81 mg capsule 81 mg PO DAILY 05/10/22 [History Last Taken Unknown] bupropion HCl 300 mg 24 hr tablet, extended release 300 mg PO DAILY 05/10/22 [History Last Taken Unknown] clopidogrel 75 mg tablet 75 mg PO QHS 05/10/22 [History Last Taken Unknown] diphenhydramine HCl 25 mg capsule (Benadryl) 75 mg PO QHS 05/10/22 [History Last Taken Unknown] duloxetine 60 mg capsule,delayed release 60 mg PO DAILY 05/10/22 [History Last Taken Unknown] empagliflozin 10 mg tablet (Jardiance) 10 mg PO DAILY 05/10/22 [History Last Taken Unknown] evolocumab 140 mg/mL subcutaneous syringe (Repatha Syringe) 420 mg subcut QMONTH 05/10/22 [History Last Taken Unknown] ezetimibe 10 mg tablet 10 mg PO DAILY 05/10/22 [History Last Taken Unknown] fluticasone propionate 50 mcg/actuation nasal spray,suspension 1 spray intranasal BID 05/10/22 [History Last Taken Unknown] insulin degludec 100 unit/mL subcutaneous solution (Tresiba U-100 Insulin) 35 unit subcut QHS 05/10/22 [History Last Taken Unknown] isosorbide dinitrate 40 mg tablet 40 mg PO TID 05/10/22 [History Last Taken Unknown] metformin 500 mg tablet 500 mg PO BID 05/10/22 [History Last Taken Unknown] metoprolol tartrate 50 mg tablet 50 mg PO QHS 05/10/22 [History Last Taken Unknown] ranolazine 1,000 mg tablet,extended release,12 hr 1,000 mg PO BID 05/10/22 [History Last Taken Unknown] rosuvastatin 40 mg tablet 40 mg PO QHS 05/10/22 [History Last Taken Unknown] tizanidine 4 mg tablet 4 mg PO QHS 05/10/22 [History Last Taken Unknown] trazodone 100 mg tablet 200 mg PO QHS 05/10/22 [History Last Taken Unknown] Allergy/AdvReac Type Severity Reaction Status Date / Time ketorolac [From Toradol] Allergy Hives Verified 05/10/22 16:03 Family History (Updated 05/10/22 @ 19:[address] Jessica Nieto MD) Mother Alzheimer disease Hypertension Heart disease CAD (coronary artery disease) HLD (hyperlipidemia) Kidney disease Father Kidney disease CAD (coronary artery disease) Heart disease Hypertension Myocardial infarction HLD (hyperlipidemia) CVA (cerebral vascular accident) Surgical History (Updated 05/10/22 @ 19:[address] Jessica Nieto MD) H/O bilateral inguinal hernia repair History of coronary artery stent placement History of elbow surgery History of foot surgery History of hand surgery History of neck surgery History of tonsillectomy and adenoidectomy S/P ear surgery Social History (Updated 05/10/22 @ 19:[address] Jessica Nieto MD) household members: spouse Smoking Status: Never smoker alcohol intake: never substance use type: does not use Physical Exam Narrative In and evaluated today at bedside Has mild symptoms of chest pain telemetry monitor showed underlying normal sinus Cardiac exam S1-S2 is regular Chest exam is clear to auscultation bilateral. Examination of lower extremity by inspection appeared normal with normal pedal pulses. Risk Stratification Risk Stratification Applicable: Yes Age >/= 65: No >/= 3 CAD Risk Factors (HTN, HLD, DM, family hx of CAD, or current smoker): Yes Aspirin Use in the Past 7 Days: Yes Severe Angina (>/= episodes in 24 hours): No EKG ST Changes >/= 0.5mm: No Positive Cardiac Marker: No CATHY Risk Stratification Score: 2 CATHY % Risk: 8% Risk Objective Data Vital Signs: Vital Signs Temp Pulse Resp BP Pulse Ox O2 Del Method O2 Flow Rate 97.3 F L 81 16 110/58 L 93 Room Air 2 05/11/22 15:10 05/11/22 15:10 05/11/22 15:10 05/11/22 15:10 05/11/22 15:10 05/11/22 15:10 05/10/22 20:35 Oxygen Flow Rate (L/min) 2 Oxygen Delivery Method Room Air Weight: 157 lb 13.616 oz Body Mass Index (BMI) 24.7 Intake & Output: Intake and Output for Last 24 Hours 05/09/22 05/10/22 05/11/22 23:59 23:59 23:59 Intake Total 960 / 960 Output Total 400 / 400 Balance 560 / 560 Lab / Micro Data Result Diagrams: 05/11/22 05:30 05/11/22 05:30 Labs: Laboratory Results - last 24 hr 05/10/22 15:50: WBC 5.2, RBC 4.68, Hgb 11.7 L, Hct 38.0 L, MCV 81.2, MCH 25.0 L, MCHC 30.8 L, RDW Std Deviation 48.9 H, RDW Coeff of Scott 16.7 H, Plt Count 226, MPV 9.1, Immature Gran % (Auto) 0.200, Neut % (Auto) 61.8, Lymph % (Auto) 24.4, [place] % (Auto) 10.7 H, Eos % (Auto) 2.7, Baso % (Auto) 0.2, Absolute Neuts (auto) 3.2, Absolute Lymphs (auto) 1.27, Nucleated RBC % 0 05/10/22 15:50: Sodium 140, Potassium 3.9, Chloride 104, Carbon Dioxide 29.0, Anion Gap 7, BUN 11, Creatinine 1.12, Estim Creat Clear Calc 63.94, Est GFR (MDRD) Af Amer 85, Est GFR (MDRD) Non-Af 71, BUN/Creatinine Ratio 9.8 L, Glucose 92, Calcium 8.8, Troponin I High Sens 10 05/10/22 15:50: Magnesium 2.1 05/10/22 17:26: POC Glucose 72 L 05/10/22 20:50: Troponin I High Sens 13 05/10/22 22:18: Troponin I High Sens 12 05/10/22 23:06: POC Glucose 110 H 05/11/22 05:30: WBC 4.9, RBC 4.49 L, Hgb 11.1 L, Hct 36.9 L, MCV 82.2, MCH 24.7 L, MCHC 30.1 L, RDW Std Deviation 49.7 H, RDW Coeff of Scott 16.6 H, Plt Count 189, MPV 9.0, Immature Gran % (Auto) 0.400, Neut % (Auto) 58.5, Lymph % (Auto) 26.6, [place] % (Auto) 10.2 H, Eos % (Auto) 4.1, Baso % (Auto) 0.2, Absolute Neuts (auto) 2.9, Absolute Lymphs (auto) 1.31, Nucleated RBC % 0 05/11/22 05:30: Sodium 141, Potassium 3.8, Chloride 108 H, Carbon Dioxide 28.0, Anion Gap 5, BUN 10, Creatinine 0.97, Estim Creat Clear Calc 73.82, Est GFR (MDRD) Af Amer 101, Est GFR (MDRD) Non-Af 84, BUN/Creatinine Ratio 10.3, Glucose 130 H, Calcium 7.8 L, Total Bilirubin 0.20, AST 18, ALT 21, Alkaline Phosphatase 53, Total Protein 5.9 L, Albumin 3.0 L, Globulin 2.9, Albumin/Globulin Ratio 1.0, Triglycerides 146, Cholesterol 91, LDL Cholesterol 9, VLDL Cholesterol 29, HDL Cholesterol 53 05/11/22 06:37: POC Glucose 137 H 05/11/22 11:19: POC Glucose 143 H Cardiology Labs/Tests 05/10/22 15:50: WBC 5.2, RBC 4.68, Hgb 11.7 L, Hct 38.0 L, MCV 81.2, MCH 25.0 L, MCHC 30.8 L, Plt Count 226, MPV 9.1, Immature Gran % (Auto) 0.200, Neut % (Auto) 61.8, Lymph % (Auto) 24.4, [place] % (Auto) 10.7 H, Eos % (Auto) 2.7, Baso % (Auto) 0.2, Absolute Neuts (auto) 3.2, Nucleated RBC % 0 05/10/22 15:50: Sodium 140, Potassium 3.9, Chloride 104, Carbon Dioxide 29.0, Anion Gap 7, BUN 11, Creatinine 1.12, Est GFR (MDRD) Af Amer 85, Est GFR (MDRD) Non-Af 71, BUN/Creatinine Ratio 9.8 L, Glucose 92, Calcium 8.8 05/10/22 15:50: Magnesium 2.1 05/11/22 05:30: WBC 4.9, RBC 4.49 L, Hgb 11.1 L, Hct 36.9 L, MCV 82.2, MCH 24.7 L, MCHC 30.1 L, Plt Count 189, MPV 9.0, Immature Gran % (Auto) 0.400, Neut % (Auto) 58.5, Lymph % (Auto) 26.6, [place] % (Auto) 10.2 H, Eos % (Auto) 4.1, Baso % (Auto) 0.2, Absolute Neuts (auto) 2.9, Nucleated RBC % 0 05/11/22 05:30: Sodium 141, Potassium 3.8, Chloride 108 H, Carbon Dioxide 28.0, Anion Gap 5, BUN 10, Creatinine 0.97, Est GFR (MDRD) Af Amer 101, Est GFR (MDRD) Non-Af 84, BUN/Creatinine Ratio 10.3, Glucose 130 H, Calcium 7.8 L, Total Bilirubin 0.20, Triglycerides 146, Cholesterol 91, LDL Cholesterol 9, VLDL Cholesterol 29, HDL Cholesterol 53 Rhythm: Normal sinus rhythm EKG: Sinus with no significant ST?T abnormalities noted Radiography Diagnostic Testing: Radiology Impression Chest X-Ray 05/10/22 16:15 IMPRESSION: No acute cardiopulmonary disease. Electronically Signed: Patrick Jamil DO at 16:30 EDT Reading Location ID and State: [address] [place] [address] Tel [phone], Service support ,
--- NOTE | 2022-05-11 15:51 | PCM.DC ---
Discharge Instructions Diet Discharge Diet: No restrictions Activity Discharge Activity: Return to Normal Activity Follow Up Care Test Results: Test results from this visit will be discussed in further detail at your follow-up appointment, if applicable. Discharge Plan Admission Admit Date/Time: 05/10/22 18:51 Primary Reason for Your Visit: Chest pain Attending Provider: Melba Jarvis Primary Care Provider: KENDALL RYAN MD Consulting Providers: Jessica Nieto ; Nancy Ardon Instructions Patient Instructions: CAD Additional Instructions / Restrictions: ? Please continue your home medications as prescribed ? Your stress test was negative. You were evaluated by cardiology who discussed a heart catheterization on Friday with you but you expressed desire for discharge home and follow-up with your home relationship associate ? Will be important that you do call your relationship associate to schedule a hospital follow-up appointment -Please call your primary care provider's office upon discharge to schedule a hospital follow up within 1 week. -For any concerning signs or symptoms please call 911 or proceed to the nearest emergency department Discharge Orders/Prescriptions Prescriptions: Continued tizanidine 4 mg Tablet 4 mg PO QHS trazodone 100 mg Tablet 200 mg PO QHS isosorbide dinitrate 40 mg Tablet 40 mg PO TID Rx Instructions: allow nitrate-free interval of 12-14 hrs per 24-hr period fluticasone propionate 50 mcg/actuation [place],Suspension 1 spray INTRANASAL BID Rx Instructions: administer into each nostril bupropion HCl 300 mg Tablet Extended Release 24 Hr 300 mg PO DAILY duloxetine 60 mg Capsule,Delayed Release(Dr/Ec) 60 mg PO DAILY ranolazine 1,000 mg Tablet Extended Release 12 Hr 1,000 mg PO BID Jardiance 10 mg Tablet 10 mg PO DAILY metformin 500 mg Tablet 500 mg PO BID clopidogrel 75 mg Tablet 75 mg PO QHS amlodipine 10 mg Tablet 10 mg PO QHS diphenhydramine HCl [Benadryl] 25 mg Capsule 75 mg PO QHS metoprolol tartrate 50 mg Tablet 50 mg PO QHS ezetimibe 10 mg Tablet 10 mg PO DAILY rosuvastatin 40 mg Tablet 40 mg PO QHS Repatha Syringe 140 mg/mL Syringe 420 mg SUBCUT QMONTH insulin degludec [Tresiba U-100 Insulin] 100 unit/mL Solution 35 unit SUBCUT QHS aspirin 81 mg Capsule 81 mg PO DAILY Humalog Pen Referrals / Follow Up: KENDALL RYAN MD [Other] KENDALL RYAN MD [Other] - Within 1 Week Disposition Disposition (needs filled in before D/C Order can be placed): Home, Self Care
--- NOTE | 2022-05-11 15:55 | DS.PCM_ITS ---
Providers Date of Admission: 05/10/22 Date of Discharge: 05/11/22 Primary Care Physician: KENDALL RYAN Consultations 05/11/22 12:59 Consult: Cardiology Routine Consulting Provider: Nancy Ardon Reason for Consult: chest pain with significant cp EMERGENT Consult: No MD Notified: Yes Date Notified: 05/11/22 Time Notified: 12:59 Method of Notification: Verbal Reason For Visit: CHEST PAIN Diagnosis Discharge Diagnosis (1) Diabetes mellitus: Status: Acute Code(s): E11.9 - Type 2 diabetes mellitus without complications (2) Coronary artery disease: Status: Acute Code(s): I25.10 - Atherosclerotic heart disease of [place] coronary artery without angina pectoris (3) Chest pain: Status: Acute Code(s): R07.9 - Chest pain, unspecified Plan #Chest pain #CAD status post PCI x15 #Type 2 diabetes mellitus #Hypertension #Anxiety and depression #Normocytic anemia Medications at Discharge Home Medications Humalog Pen 05/10/22 amlodipine 10 mg tablet 10 mg PO QHS 05/10/22 aspirin 81 mg capsule 81 mg PO DAILY 05/10/22 bupropion HCl 300 mg 24 hr tablet, extended release 300 mg PO DAILY 05/10/22 clopidogrel 75 mg tablet 75 mg PO QHS 05/10/22 diphenhydramine HCl 25 mg capsule (Benadryl) 75 mg PO QHS 05/10/22 duloxetine 60 mg capsule,delayed release 60 mg PO DAILY 05/10/22 empagliflozin 10 mg tablet (Jardiance) 10 mg PO DAILY 05/10/22 evolocumab 140 mg/mL subcutaneous syringe (Repatha Syringe) 420 mg subcut QMONTH 05/10/22 ezetimibe 10 mg tablet 10 mg PO DAILY 05/10/22 fluticasone propionate 50 mcg/actuation nasal spray,suspension 1 spray intranasal BID 05/10/22 insulin degludec 100 unit/mL subcutaneous solution (Tresiba U-100 Insulin) 35 unit subcut QHS 05/10/22 isosorbide dinitrate 40 mg tablet 40 mg PO TID 05/10/22 metformin 500 mg tablet 500 mg PO BID 05/10/22 metoprolol tartrate 50 mg tablet 50 mg PO QHS 05/10/22 ranolazine 1,000 mg tablet,extended release,12 hr 1,000 mg PO BID 05/10/22 rosuvastatin 40 mg tablet 40 mg PO QHS 05/10/22 tizanidine 4 mg tablet 4 mg PO QHS 05/10/22 trazodone 100 mg tablet 200 mg PO QHS 05/10/22 Hospital Course Procedures Stress test Summary of Care Provided Minutes Spent on Discharge: 20 Hospital Course: 62-year-old male with a history of anxiety and depression, CAD status post PCI x15, hypertension, diabetes type 2 who presented to the emergency department 05/10 with chest pain. Troponins negative, EKG not concerning for new acute ischemic change. Stress test was within normal limits. Given he did have some further chest pain though had no association with rest or exertion and was only relieved with morphine, cardiology consulted as he has had multiple PCI's in the past. He was offered cardiac catheterization on Friday but he reported he did not want to stay in the hospital and would rather be discharged and follow-up outpatient with his home coverstitch machine operator. Discussed risks and warning signs and symptoms of when to come back to the hospital if needed. He verbalized his understanding. Discharged home. Physical Exam Const alert and oriented x3 General Appearance: cooperative and comfortable HEENT normocephalic and head/scalp atraumatic Eyes EOMs intact bilaterally Neck supple Resp normal respiratory effort and clear to auscultation bilaterally Cardio regular rate and regular rhythm GI soft to palpation, non-tender and non-distended Extremity normal to inspection Skin no rashes or lesions noted Neuro moves all extremities Psych affect normal Weight / BMI Weight Weight: 71.6 kg Body Mass Index (BMI) 24.7 ABG / Lab / Microbiology Data Result Diagrams: 05/11/22 05:30 05/11/22 05:30 Laboratory: Laboratory Results - last 24 hr 05/10/22 15:50: WBC 5.2, RBC 4.68, Hgb 11.7 L, Hct 38.0 L, MCV 81.2, MCH 25.0 L, MCHC 30.8 L, RDW Std Deviation 48.9 H, RDW Coeff of Scott 16.7 H, Plt Count 226, MPV 9.1, Immature Gran % (Auto) 0.200, Neut % (Auto) 61.8, Lymph % (Auto) 24.4, [place] % (Auto) 10.7 H, Eos % (Auto) 2.7, Baso % (Auto) 0.2, Absolute Neuts (auto) 3.2, Absolute Lymphs (auto) 1.27, Nucleated RBC % 0 05/10/22 15:50: Sodium 140, Potassium 3.9, Chloride 104, Carbon Dioxide 29.0, Anion Gap 7, BUN 11, Creatinine 1.12, Estim Creat Clear Calc 63.94, Est GFR (MDRD) Af Amer 85, Est GFR (MDRD) Non-Af 71, BUN/Creatinine Ratio 9.8 L, Glucose 92, Calcium 8.8, Troponin I High Sens 10 05/10/22 15:50: Magnesium 2.1 05/10/22 17:26: POC Glucose 72 L 05/10/22 20:50: Troponin I High Sens 13 05/10/22 22:18: Troponin I High Sens 12 05/10/22 23:06: POC Glucose 110 H 05/11/22 05:30: WBC 4.9, RBC 4.49 L, Hgb 11.1 L, Hct 36.9 L, MCV 82.2, MCH 24.7 L, MCHC 30.1 L, RDW Std Deviation 49.7 H, RDW Coeff of Scott 16.6 H, Plt Count 189, MPV 9.0, Immature Gran % (Auto) 0.400, Neut % (Auto) 58.5, Lymph % (Auto) 26.6, [place] % (Auto) 10.2 H, Eos % (Auto) 4.1, Baso % (Auto) 0.2, Absolute Neuts (auto) 2.9, Absolute Lymphs (auto) 1.31, Nucleated RBC % 0 05/11/22 05:30: Sodium 141, Potassium 3.8, Chloride 108 H, Carbon Dioxide 28.0, Anion Gap 5, BUN 10, Creatinine 0.97, Estim Creat Clear Calc 73.82, Est GFR (MDRD) Af Amer 101, Est GFR (MDRD) Non-Af 84, BUN/Creatinine Ratio 10.3, Glucose 130 H, Calcium 7.8 L, Total Bilirubin 0.20, AST 18, ALT 21, Alkaline Phosphatase 53, Total Protein 5.9 L, Albumin 3.0 L, Globulin 2.9, Albumin/Globulin Ratio 1.0, Triglycerides 146, Cholesterol 91, LDL Cholesterol 9, VLDL Cholesterol 29, HDL Cholesterol 53 05/11/22 06:37: POC Glucose 137 H 05/11/22 11:19: POC Glucose 143 H Radiography Diagnostic Testing: Radiology Impression Chest X-Ray 05/10/22 16:15 IMPRESSION: No acute cardiopulmonary disease. Electronically Signed: Patrick Jamil DO at 16:30 EDT Reading Location ID and State: [address] [place] [address] Tel [phone], Service support , D/C Instructions Discharge Diet: No restrictions Meaningful Use Info Meaningful Use Diagnoses (Choose all that apply): None applicable Discharge Plan Admission Admit Date/Time: 05/10/22 18:51 Primary Reason for Your Visit: Chest pain Attending Provider: Melba Jarvis Primary Care Provider: KENDALL RYAN MD Consulting Providers: Jessica Nieto ; Nancy Ardon Instructions Patient Instructions: CAD Additional Instructions / Restrictions: ? Please continue your home medications as prescribed ? Your stress test was negative. You were evaluated by cardiology who discussed a heart catheterization on Friday with you but you expressed desire for discharge home and follow-up with your home coverstitch machine operator ? Will be important that you do call your coverstitch machine operator to schedule a hospital follow-up appointment -Please call your primary care provider's office upon discharge to schedule a hospital follow up within 1 week. -For any concerning signs or symptoms please call 911 or proceed to the nearest emergency department Discharge Orders/Prescriptions Prescriptions: Continued tizanidine 4 mg Tablet 4 mg PO QHS trazodone 100 mg Tablet 200 mg PO QHS isosorbide dinitrate 40 mg Tablet 40 mg PO TID Rx Instructions: allow nitrate-free interval of 12-14 hrs per 24-hr period fluticasone propionate 50 mcg/actuation [place],Suspension 1 spray INTRANASAL BID Rx Instructions: administer into each nostril bupropion HCl 300 mg Tablet Extended Release 24 Hr 300 mg PO DAILY duloxetine 60 mg Capsule,Delayed Release(Dr/Ec) 60 mg PO DAILY ranolazine 1,000 mg Tablet Extended Release 12 Hr 1,000 mg PO BID Jardiance 10 mg Tablet 10 mg PO DAILY metformin 500 mg Tablet 500 mg PO BID clopidogrel 75 mg Tablet 75 mg PO QHS amlodipine 10 mg Tablet 10 mg PO QHS diphenhydramine HCl [Benadryl] 25 mg Capsule 75 mg PO QHS metoprolol tartrate 50 mg Tablet 50 mg PO QHS ezetimibe 10 mg Tablet 10 mg PO DAILY rosuvastatin 40 mg Tablet 40 mg PO QHS Repatha Syringe 140 mg/mL Syringe 420 mg SUBCUT QMONTH insulin degludec [Tresiba U-100 Insulin] 100 unit/mL Solution 35 unit SUBCUT QHS aspirin 81 mg Capsule 81 mg PO DAILY Humalog Pen Referrals / Follow Up: KENDALL RYAN MD [Other] KENDALL RYAN MD [Other] - Within 1 Week Disposition Disposition (needs filled in before D/C Order can be placed): Home, Self Care Charges/Coding Visit Charges OBSV E&M: 76379 Observation care discharge
== END 2022-05-11 16:09 | disposition home or self-care (01) ==
LOC: ED 19:05 → PCU 19:30
PROVIDERS: Admitting Provider Family Medicine; Emergency Provider Emergency Medicine; Visit Provider Internal Medicine
DX: R07.89 Other chest pain (principal); E11.9 Type 2 diabetes mellitus without complications; Z79.4 Long term (current) use of insulin; I25.10 Atherosclerotic heart disease of native coronary artery without angina pectoris; F41.9 Anxiety disorder, unspecified; E78.5 Hyperlipidemia, unspecified; R11.0 Nausea; I10 Essential (primary) hypertension; Z79.82 Long term (current) use of aspirin; Z79.02 Long term (current) use of antithrombotics/antiplatelets; Z79.899 Other long term (current) drug therapy; R06.00 Dyspnea, unspecified; Z82.49 Family history of ischemic heart disease and other diseases of the circulatory system; F32.A Depression, unspecified
CPT/HCPCS: 36415; 71045; 78452; 80048; 80053; 80061; 82962; 83735; 84484; 85025; 93005; 93017; 96361; 96374; 96375; 96376; 99218; 99284; A9500; J7030; A4216; G0378; J2405; J2785